=== PATIENT | male | born 1990 | race Native Hawaiian/Other Pacific Islander ===

== ENCOUNTER 2021-02-26 20:57 | Emergency (ER) | payer OTHER ==
[~2021-02-26] VITALS: Ht 175.3 cm; Wt 83.9 kg
[2021-02-26 22:40] VITALS: BP 139/70; TEMP 98.2
== END 2021-02-26 22:55 | disposition home or self-care (01) ==
LOC: ED 20:57
DX: S90.32XA Contusion of left foot, initial encounter (principal); S90.02XA Contusion of left ankle, initial encounter; S90.812A Abrasion, left foot, initial encounter; S90.512A Abrasion, left ankle, initial encounter; V86.55XA Driver of 3- or 4- wheeled all-terrain vehicle (ATV) injured in nontraffic accident, initial encounter; Y92.89 Other specified places as the place of occurrence of the external cause
CPT/HCPCS: 90471; 90715; 96372; 99283; J1885